=== PATIENT | female | born 1970 | race Caucasian/White ===

== ENCOUNTER → 2019-10-01 16:24 | Outpatient (BNVA) | payer BC, SELFPAY | PROVIDERS: Family Provider Internal Medicine; PCP Internal Medicine; Visit Provider Internal Medicine | DX: R30.0 Dysuria (principal) | CPT/HCPCS: 81001 ==

== ENCOUNTER 2020-03-04 11:00 | Emergency (ER) | payer OTHER, SELFPAY ==
[2020-03-04 11:03] VITALS: BP 146/67; PULSE 86; RESP 18; TEMP 36.7; O2SAT 94; BMI 47.2
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
[2020-03-04 12:30] VITALS: BP 182/79; PULSE 78; RESP 18; O2SAT 96
== END 2020-03-04 12:30 | disposition home or self-care (01) ==
PROVIDERS: Emergency Provider Emergency Medicine; PCP Internal Medicine
DX: S39.012A Strain of muscle, fascia and tendon of lower back, initial encounter (principal); V89.2XXA Person injured in unspecified motor-vehicle accident, traffic, initial encounter
CPT/HCPCS: 12345; 70450; 72125; 72128; 72131; 96374; 96375; 99282; 99283

== ENCOUNTER → 2020-03-27 15:08 | Outpatient (BNVA) | payer OTHER, SELFPAY | PROVIDERS: PCP Internal Medicine; Visit Provider Nurse Practitioner Family | DX: N95.0 Postmenopausal bleeding (principal); R31.9 Hematuria, unspecified; N39.0 Urinary tract infection, site not specified | CPT/HCPCS: 81000; 81001; 81003 ==

== ENCOUNTER → 2020-05-05 14:09 | Outpatient (BNVA) | payer OTHER, SELFPAY | PROVIDERS: PCP Internal Medicine; Visit Provider Internal Medicine | DX: L68.0 Hirsutism (principal); E89.0 Postprocedural hypothyroidism; R63.5 Abnormal weight gain | CPT/HCPCS: 99203 ==

== ENCOUNTER 2020-05-18 07:41 | Outpatient (CLI) | payer OTHER, SELFPAY | END 2020-05-18 07:42 | disposition home or self-care (01) | LOC: LAB 07:44 | PROVIDERS: PCP Internal Medicine; Visit Provider Internal Medicine | DX: E89.0 Postprocedural hypothyroidism (principal); L68.0 Hirsutism; R63.5 Abnormal weight gain | CPT/HCPCS: 82530 ==

== ENCOUNTER → 2020-06-30 14:16 | Outpatient (BNVA) | payer OTHER, SELFPAY | PROVIDERS: PCP Internal Medicine; Visit Provider Internal Medicine | DX: E89.0 Postprocedural hypothyroidism (principal); L68.0 Hirsutism | CPT/HCPCS: 82627; 84439; 84443 ==

== ENCOUNTER → 2020-07-08 14:03 | Outpatient (BNVA) | payer OTHER, SELFPAY | PROVIDERS: PCP Internal Medicine; Visit Provider Internal Medicine | DX: E89.0 Postprocedural hypothyroidism (principal); L68.0 Hirsutism; R63.5 Abnormal weight gain | CPT/HCPCS: 99214 ==

== ENCOUNTER → 2020-08-17 08:45 | Outpatient (BNVA) | payer OTHER, SELFPAY | PROVIDERS: PCP Internal Medicine; Visit Provider Family Medicine | DX: Z20.828 Contact with and (suspected) exposure to other viral communicable diseases (principal) | CPT/HCPCS: 87635 ==

== ENCOUNTER → 2020-09-24 13:53 | Outpatient (BNVA) | payer OTHER, SELFPAY | PROVIDERS: PCP Internal Medicine; Visit Provider Internal Medicine | DX: E89.0 Postprocedural hypothyroidism (principal); L68.0 Hirsutism | CPT/HCPCS: 84402; 84439; 84443 ==

== ENCOUNTER → 2020-10-01 14:36 | Outpatient (BNVA) | payer OTHER, SELFPAY | PROVIDERS: PCP Internal Medicine; Visit Provider Internal Medicine | DX: E89.0 Postprocedural hypothyroidism (principal); G47.33 Obstructive sleep apnea (adult) (pediatric); L68.0 Hirsutism; R63.5 Abnormal weight gain | CPT/HCPCS: 99214 ==

== ENCOUNTER → 2021-04-28 14:35 | Outpatient (BNVA) | payer OTHER, SELFPAY | PROVIDERS: PCP Internal Medicine; Visit Provider Internal Medicine | DX: E89.0 Postprocedural hypothyroidism (principal); L68.0 Hirsutism | CPT/HCPCS: 84443 ==

== ENCOUNTER → 2021-09-14 16:41 | Outpatient (BNVA) | payer OTHER, SELFPAY | PROVIDERS: PCP Internal Medicine; Visit Provider Nurse Practitioner Family | DX: Z12.11 Encounter for screening for malignant neoplasm of colon (principal) | CPT/HCPCS: 87635 ==

== ENCOUNTER 2021-09-20 06:41 | Day surgery (SDC) | payer OTHER, SELFPAY ==
[2021-09-14 12:48] VITALS: BMI 49.4
[2021-09-20 07:04] VITALS: BP 164/102; PULSE 80; RESP 20; TEMP 36.1; O2SAT 97
[2021-09-20] MEDS: sodium chloride 0.9% 1,000 ML 30 ML IV (07:20)
--- NOTE | 2021-09-20 07:22 | ANES.PREANE2 ---
Pre-Anesthetic Assessment Pre-Anesthetic Assessment: Height/Weight: Height 1.75 m Weight 151.953 kg Temp Pulse Resp BP Pulse Ox 97.0 F L 80 20 H 164/102 97 09/20/21 07:04 09/20/21 07:04 09/20/21 07:04 09/20/21 07:04 09/20/21 07:04 Preop Diagnosis: Screen Proposed Procedure: Operation Date: 09/20/21 07:30 Proposed Procedures p Colonoscopy [id number] Z12.11(Not Applicable) - Jr Gonzalez MD Familial anesthetic complications: slow to wake up Was Beta Olivier taken within 24 hours: N/A Was Clonidine taken within 24 hours: N/A Last intake: Intake Last Liquid Date 09/19/21 Last Liquid Time 22:00 Last Solid Date 09/18/21 Last Solid Time 16:45 Last Intake: 22:00 Social: Social History: No alcohol and No tobacco Exam: Pre-Anes Outpt Exam: alert, oriented x 3, clear to auscultation bilaterally and regular rate & rhythm Airway: Submandibular: WNL Cervical ROM: WNL MP: 3 Dentition: Full Pulmonary: Pulmonary: Sleep apnea (CPAP) : : None reported Comments: Pt has not had period in 20 yrs Hepatic: Hepatic: None reported GI: GI: GERD (controlled) Metabolic: Metabolic: Morbid obesity and Thyroid Musc/skel: Musc/skel: Lower Back Pain Neuropsych: Neuropsych: Anxiety and Depression Anesthetic Plan: ASA status: 3 Anesthesia: MAC Meds/Allergies Current Medications: Current Medications Generic Name Dose Route Start Last Admin Trade Name Freq PRN Reason Stop Dose Admin Sodium Chloride 1,000 mls @ 30 ml s/hr 09/20/21 07:15 09/20/21 07:20 Sodium Chloride 0.9% IV 30 mls/hr .Q24H MIGUEL ÁNGEL Administration PFSH Anesthesia PFSH: Medical History Anxiety Graves disease Family History Father Hypertension Mother Fibromyalgia Sister Fibromyalgia Social History Smoking and tobacco status: never smoked Alcohol intake: current Alcohol intake frequency: holidays/special occasions only Alcohol type: wine Marital status: Number of children: 1 service: No History of recent travel: No Current gender identity: Female Data Anesthesia Cardiac Studies: No Data to Display
--- NOTE | 2021-09-20 07:23 | P.HP_ITS ---
Same Day Surgery H&P Indication for Procedure/HPI DATE OF PROCEDURE: September 20, 2021 CHIEF COMPLAINT/INDICATIONFOR SURGICAL PROCEDURE: Screening PREOP DIAGNOSIS: Screen PLANNED PROCEDRUE: Operation Date: 09/20/21 07:30 Proposed Procedures p Colonoscopy [id number] Z12.11(Not Applicable) - Jr Gonzalez MD Medications/Allergies* Home Medications Medication Instructions Recorded Confirmed Type calcium carbonate-vitamin D3 1 tab PO DAILY 03/04/20 09/20/21 History [Caltrate with Vitamin D3] cetirizine 10 mg PO DAILY 03/04/20 09/20/21 History cyanocobalamin (vitamin B-12) 1,000 mcg PO DAILY 03/04/20 09/20/21 History [Vitamin B-12] magnesium oxide [MagOx] 400 mg PO DAILY 03/04/20 09/20/21 History multivitamin 1 tab PO DAILY 03/04/20 09/20/21 History ascorbate calcium (vitamin C) 500 500 mg PO DAILY 07/08/20 09/20/21 History mg tablet zinc 50 mg tablet 50 mg PO DAILY 07/08/20 09/20/21 History cholecalciferol (vitamin D3) 1,250 1,250 mcg PO .q 7 days wafer 05/05/21 09/20/21 History mcg (50,000 unit) oral wafer esomeprazole magnesium 40 mg PO DAILY 09/14/21 09/20/21 History Allergies/Adverse Reactions Allergy/AdvReac Type Severity Reaction Status Date / Time amoxicillin Allergy leg Verified 09/20/21 07:00 swelling Sulfa (Sulfonamide Allergy RASH Verified 09/20/21 07:00 Antibiotics) sulfamethoxazole Allergy RASH Verified 09/20/21 07:00 [From Bactrim] trimethoprim [From Bactrim] Allergy RASH Verified 09/20/21 07:00 Current Medications: Generic Name Dose Route Start Last Admin Trade Name Freq PRN Reason Stop Dose Admin Sodium Chloride 1,000 mls @ 30 mls/hr 09/20/21 07:15 09/20/21 07:20 Sodium Chloride 0.9% IV 30 mls/hr .Q24H MIGUEL ÁNGEL Administration Pertinent History/Comorbid Conditions* Medical History (Updated 08/25/21 @ 15:03 by Jr Gonzalez MD) Anxiety Graves disease Family History (Updated 05/05/20 @ 14:26 by Xavier Stauffer LPN) Fibromyalgia Mother Sister Hypertension Father Social History Smoking and tobacco status: never smoked Alcohol intake: current Alcohol intake frequency: holidays/special occasions only Alcohol type: wine Marital status: Number of children: 1 service: No History of recent travel: No Current gender identity: Female Pertinent Exam Findings alert, oriented x 3, clear to auscultation bilaterally, regular rate & rhythm, operative site marked and procedure specific exam findings Recommendations Surgery/Procedure today Coding Level of Care Code Acute Licensed Real Estate Broker for Kofi Jean
[2021-09-20 08:06] VITALS: BP 144/97; PULSE 76; RESP 16; TEMP 36.5; O2SAT 94
[2021-09-20 08:25] VITALS: BP 162/99; PULSE 69; RESP 18; O2SAT 97
--- NOTE | 2021-09-20 11:11 | ANE.PACU2 ---
Inpatient post-anesthesia follow up: Vital signs: Temperature 97.7 F Pulse Rate 69 Respiratory Rate 18 Blood Pressure 162/99 Pulse Oximetry 97 Oxygen Delivery Me thod Room Air Oxygen Flow Rate Fraction of Inspir ed Oxygen Hydration adequate: Yes Nausea and vomiting: No Pain level: 1 Mental status: Baseline Additional Comments: EMR review
== END 2021-09-20 08:45 | disposition home or self-care (01) ==
PROVIDERS: PCP Internal Medicine; Visit Provider Internal Medicine
PROC: 0DJD8ZZ Inspection of Lower Intestinal Tract, Via Natural or Artificial Opening Endoscopic (ICD-10-PCS; CPT 45378; principal; 2021-09-20 07:30)
DX: Z12.11 Encounter for screening for malignant neoplasm of colon (principal); G47.30 Sleep apnea, unspecified; K21.9 Gastro-esophageal reflux disease without esophagitis; E66.01 Morbid (severe) obesity due to excess calories; Z68.42 Body mass index [BMI] 45.0-49.9, adult; F41.9 Anxiety disorder, unspecified; Z82.49 Family history of ischemic heart disease and other diseases of the circulatory system
CPT/HCPCS: 45378; 96360; J2704; J7030

== ENCOUNTER → 2021-10-27 15:10 | Outpatient (BNVA) | payer OTHER, SELFPAY | PROVIDERS: PCP Internal Medicine; Visit Provider Internal Medicine | DX: Z13.1 Encounter for screening for diabetes mellitus (principal) | CPT/HCPCS: 83036 ==

== ENCOUNTER → 2022-01-18 14:19 | Outpatient (BNVA) | payer OTHER, SELFPAY | PROVIDERS: PCP Internal Medicine; Visit Provider Internal Medicine | DX: E89.0 Postprocedural hypothyroidism (principal); R63.5 Abnormal weight gain; L68.0 Hirsutism | CPT/HCPCS: 84439; 84443 ==

== ENCOUNTER → 2022-06-30 09:50 | Outpatient (BNVA) | payer OTHER, SELFPAY | PROVIDERS: PCP Family Medicine; Visit Provider Family Medicine | DX: R63.5 Abnormal weight gain (principal); E89.0 Postprocedural hypothyroidism; Z13.1 Encounter for screening for diabetes mellitus; I10 Essential (primary) hypertension; R73.03 Prediabetes; G47.33 Obstructive sleep apnea (adult) (pediatric); J22 Unspecified acute lower respiratory infection; Z51.81 Encounter for therapeutic drug level monitoring | CPT/HCPCS: 80053; 80061; 83036; 84439; 84443; 85025 ==

== ENCOUNTER → 2023-01-04 09:17 | Outpatient (BNVA) | payer OTHER, SELFPAY | PROVIDERS: PCP Family Medicine; Visit Provider Internal Medicine | DX: E89.0 Postprocedural hypothyroidism (principal); R73.03 Prediabetes; L68.0 Hirsutism; R63.5 Abnormal weight gain; G47.33 Obstructive sleep apnea (adult) (pediatric) | CPT/HCPCS: 36415; 84439; 84443; 84480 ==

== ENCOUNTER 2023-03-24 14:25 | Outpatient (CLI) | payer OTHER, SELFPAY ==
[2023-03-24 15:14] LABS: Estmated Average Glucose 120; Hemoglobin A1C 5.8 % (4.0-6.0)
== END 2023-03-24 14:26 | disposition home or self-care (01) ==
PROVIDERS: PCP Family Medicine; Visit Provider Internal Medicine
DX: R73.03 Prediabetes (principal)
CPT/HCPCS: 36415; 83036

== ENCOUNTER 2023-04-27 13:43 | Outpatient (CLI) | payer OTHER, SELFPAY ==
[2023-04-27 15:27] LABS: Free T4 Free Thyroxine 1.21 ng/dL (0.82-1.77); Thyroid Stimulating Hormone 1.15 uIU/mL (0.27-4.20)
[2023-04-28 14:29] LABS: T3 Total 116 ng/dL (76-181)
== END 2023-04-27 13:44 | disposition home or self-care (01) ==
PROVIDERS: PCP Family Medicine; Visit Provider Internal Medicine
DX: E89.0 Postprocedural hypothyroidism (principal); L68.0 Hirsutism
CPT/HCPCS: 36415; 84439; 84443; 84480

== ENCOUNTER → 2023-06-20 14:31 | Outpatient (BNVA) | payer OTHER, SELFPAY | PROVIDERS: PCP Family Medicine; Visit Provider Family Medicine | DX: Z51.81 Encounter for therapeutic drug level monitoring (principal); E55.9 Vitamin D deficiency, unspecified; R25.2 Cramp and spasm; E53.8 Deficiency of other specified B group vitamins; E87.6 Hypokalemia; I10 Essential (primary) hypertension; Z13.1 Encounter for screening for diabetes mellitus | CPT/HCPCS: 80053; 82306; 82607; 83735; 85025 ==

== ENCOUNTER → 2023-10-27 08:19 | Outpatient (BNVA) | payer OTHER, SELFPAY | PROVIDERS: PCP Family Medicine; Visit Provider Family Medicine | DX: R53.81 Other malaise (principal); R53.83 Other fatigue; G47.33 Obstructive sleep apnea (adult) (pediatric); E66.01 Morbid (severe) obesity due to excess calories; I10 Essential (primary) hypertension; E10.9 Type 1 diabetes mellitus without complications; Z79.899 Other long term (current) drug therapy | CPT/HCPCS: 80053; 82306; 82607; 83540; 83735; 85025 ==

== ENCOUNTER → 2023-11-02 19:45 | Outpatient (BNVA) | payer OTHER, SELFPAY | PROVIDERS: PCP Family Medicine; Visit Provider Registered Nurse Neonatal Intensive Care | DX: R10.9 Unspecified abdominal pain (principal); R31.9 Hematuria, unspecified; Z79.899 Other long term (current) drug therapy | CPT/HCPCS: 81000; 87086 ==

== ENCOUNTER → 2023-11-06 14:07 | Outpatient (BNVA) | payer OTHER, SELFPAY | PROVIDERS: PCP Family Medicine; Visit Provider Family Medicine | DX: E89.0 Postprocedural hypothyroidism (principal); R73.03 Prediabetes; L68.0 Hirsutism; R63.5 Abnormal weight gain; G47.33 Obstructive sleep apnea (adult) (pediatric) | CPT/HCPCS: 80053; 80061; 82043; 83036; 84439; 84443 ==

== ENCOUNTER → 2024-02-15 13:36 | Outpatient (BNVA) | payer OTHER, SELFPAY | PROVIDERS: PCP Family Medicine; Visit Provider Internal Medicine | DX: E89.0 Postprocedural hypothyroidism (principal); R73.03 Prediabetes; R63.5 Abnormal weight gain; L68.0 Hirsutism; G47.33 Obstructive sleep apnea (adult) (pediatric) | CPT/HCPCS: 82306; 83036; 83540; 84439; 84443 ==

== ENCOUNTER 2024-06-19 08:39 | Outpatient (CLI) | payer OTHER, SELFPAY ==
[2024-06-19 09:38] LABS: 25 Hydroxy Vitamin D 48 ng/mL (30-100); Iron 97 ug/dL (37-145); Thyroid Stimulating Hormone 1.23 uIU/mL (0.27-4.20)
[2024-06-19 09:43] LABS: Estmated Average Glucose 123; Hemoglobin A1C 5.9 % (4.0-6.0)
[2024-06-19 10:59] LABS: Free T4 Free Thyroxine 1.34 ng/dL (0.82-1.77)
== END 2024-06-19 08:40 | disposition home or self-care (01) ==
LOC: LAB 08:40
PROVIDERS: PCP Family Medicine; Visit Provider Internal Medicine
DX: E89.0 Postprocedural hypothyroidism (principal); R73.03 Prediabetes; R63.5 Abnormal weight gain
CPT/HCPCS: 36415; 82306; 83036; 83540; 84439; 84443

== ENCOUNTER → 2024-10-29 10:37 | Outpatient (BNVA) | payer OTHER, SELFPAY | PROVIDERS: PCP Family Medicine; Visit Provider Family Medicine | DX: R69 Illness, unspecified (principal) | CPT/HCPCS: 87400 ==